=== PATIENT | female | born 1990 | race Caucasian/White ===

== ENCOUNTER 2024-01-19 21:52 | Emergency (ER) | payer OTHER, SELFPAY ==
[2024-01-19 21:54] VITALS: BP 190/126
[2024-01-19 23:06] VITALS: BMI 33.4
--- NOTE | 2024-01-19 23:39 | ED.GENMED ---
History of Present Illness
<JOSS Avila - Last Filed: 01/20/24 00:15>
General
Chief Complaint: Eye Problems
Source: patient and family
Time Seen by Provider: 01/19/24 23:21
Travel History
Have you had any contact with someone who has COVID-19?: No
Do you have any symptoms of coronavirus? Fever > 100 degrees, chills, cough, shortness of breath, sore throat, loss of taste or smell, muscle aches, or headache?: No
History of Present Illness
History of Present Illness:
33 year old female with hx of tricuspid valve regurgitation and migraines who presents for R eye pain and photophobia that began earlier this morning. Pt states she was using a stoneworking belt sander to sand wood at her house this morning. She was not wearing
eye protection. She went outside and the sunlight burned her R eye and had brief blindness to that eye. Since then she has had R eye pain and increased sensitivity to the light to the R eye. She went inside and turned off the lights and saw green
and had tunnel vision to the L eye for about 20 seconds. Reports a foreign body sensation to the R eye. She does not know if something got in her eye. Denies any trauma to the eye. She immediately rinsed the eye using a hose with temporarily relief
of the pain. She also used rewetting eye drop solution. States she has been using different material to make an eye patch to protect her eye from the light. Pt reports she developed a head ache on the right side. Also reports runny nose that
developed in the evening today. Denies contact or corrective lens use. Denies fevers/chills, cough, recent URI, chest pain, SOB.
Review of Systems
<JOSS Avila - Last Filed: 01/20/24 00:15>
Review of Systems
Allergies reviewed?: Yes
All Other Systems: ROS reviewed and negative except as documented in HPI and ROS
Constitutional: Reports no symptoms
EENT: Reports tearing and other (R eye pain, foreign body sensation, redness. )
Respiratory: Reports no symptoms
Cardiac: Reports no symptoms
ABD/GI: Reports no symptoms
: Reports no symptoms
Musculoskeletal: Reports no symptoms
Skin: Reports no symptoms
Neurological: Reports headache
Hematologic/Lymphatic: Reports no symptoms
Psychiatric: Reports no symptoms
Phy Exam
<JOSS Avila - Last Filed: 01/20/24 00:15>
General Physical Exam
General Presentation: well appearing and no apparent distress
General age: appears stated age and appears older than age
General Skin: warm and dry
General Habitus: normal
General Mental: alert
General Hydration: appears well hydrated
ENT Exam
ENT Exam: EOMI
Eye Exam
Eye Exam: PERRL, EOMI and cornea clear
Pupil Exam: Bilateral: round and reactive
Conjunctival Changes: right: chemosis
Cornea Exam: ulceration: Right (fluorescein uptake inferiorly)
Eyelid Exam: red and inflamed: Right
Cardiovascular Exam
Cardiovascular Exam: regular rate/rhythm, no edema, no gallop and no murmur
Pulmonary Exam
Pulmonary Exam: lungs clear, no respiratory distress, no rales, no crackles, no rhonchi, no wheezing and no cough
Neurological Exam
Neurological Exam: alert and oriented x3
Psychiatric Exam
Psychiatric Exam: normal mood/affect
Course
<JOSS Avila - Last Filed: 01/20/24 00:15>
Orders/Labs/Results
Orders:
Orders
01/20/24 00:12
Ibuprofen [Motrin] 800 mg PO NOW STA
01/20/24 00:17
RPR [Syphilis/T. pallidum Ab Reflex] Urgent
01/20/24 00:20
Atropine Sulfate [Atropine Sulfate 1% Drops] See Dose Instructions OPHTH ONCE ONE
Gentamicin [Genoptic 0.3% Eye Drops] See Dose Instructions OPHTH NOW STA
Vital Signs
Initial and Last Documented VS:
Initial Vital Signs
Temp Pulse Resp BP Pulse Ox
98.9 F 116 24 190/126 100
01/19/24 21:54 01/19/24 21:54 01/19/24 21:54 01/19/24 21:54 01/19/24 21:54
Last Documented Vital Signs
Temp Pulse Resp BP Pulse Ox
98.9 F 116 24 190/126 100
01/19/24 21:54 01/19/24 21:54 01/19/24 21:54 01/19/24 21:54 01/19/24 21:54
<Aleena Clayton DO - Last Filed: 01/20/24 00:33>
Orders/Labs/Results
Orders:
Orders
01/20/24 00:12
Ibuprofen [Motrin] 800 mg PO NOW STA
01/20/24 00:17
RPR [Syphilis/T. pallidum Ab Reflex] Urgent
01/20/24 00:20
Atropine Sulfate [Atropine Sulfate 1% Drops] See Dose Instructions OPHTH ONCE ONE
Gentamicin [Genoptic 0.3% Eye Drops] See Dose Instructions OPHTH NOW STA
Vital Signs
Initial and Last Documented VS:
Initial Vital Signs
Temp Pulse Resp BP Pulse Ox
98.9 F 116 24 190/126 100
01/19/24 21:54 01/19/24 21:54 01/19/24 21:54 01/19/24 21:54 01/19/24 21:54
Last Documented Vital Signs
Temp Pulse Resp BP Pulse Ox
98.9 F 116 24 190/126 100
01/19/24 21:54 01/19/24 21:54 01/19/24 21:54 01/19/24 21:54 01/19/24 21:54
<JOSS Avila - Last Filed: 01/20/24 00:15>
MDM/Problems Addressed
Differential Diagnosis Includes:
iritis, uveitis, foreign body in eye, acute angle closure glaucoma
MDM/Problems Addressed:
33 year old female with sudden onset of R eye pain and photosensitivity that began this morning.
<JOSS Avila - Last Filed: 01/20/24 00:15>
*Critical Care Note
Total Time (30-74mins, 75-104mins- exclusive of procedures): Not Applicable
ED Attending Note
<JOSS Avila - Last Filed: 01/20/24 00:15>
-
Portions of this chart may have been created with voice recognition software.� Occasional wrong word or��sound alike� substitutions may have occurred due to the inherent limitations of voice recognition software.
<Aleena Clayton DO - Last Filed: 01/20/24 00:33>
ED Attending Note
Patient seen and examined by attending physician: Yes
I performed the substantive portion of visit, reviewed & personally made and approve the management plan that is documented in note by myself or YAYA.: Yes
I performed a history and physical exam of patient and discussed management with resident, I reviewed resident's note and agree with documented findings and plan of care.: Yes
ED Attending Note:
This is a 33-year-old woman who has history of anxiety, currently following with specialist, transitioning from Seroquel to trazodone. Other than this she takes no other medications.
She states while working outdoors, standing a wooden table she felt a piece of dust or something fly into her right eye. She has had persistent foreign body sensation, pain and tearing to her right eye despite exhaustive efforts throughout the day
trying to flush her eye. She admits to significant light sensitivity causing moderate right eye pain and right forehead pain. She denies blurred nor loss of vision. No history of similar episodes in the past.
She does not wear contacts nor corrective lenses.
She denies risk of has IUD in place.
GENERAL: 33-year-old woman appears her stated age, awake and alert, appears moderately uncomfortable, preferentially holding her right eye closed, intermittently rubbing and dabbing at her right eye.
EYE: Right eye has mild conjunctival injection. Mild miosis of right eye with significant photosensitivity of right eye and moderate clear tearing. After tetracaine instilled patient reports complete relief of eye discomfort.
Fluorescein stain, Salmon lamp and slit lamp exam reveals mild/superficial abrasion inferior aspect of the cornea. There is no corneal foreign body. Anterior chamber appears clear.
NECK: Supple, nontender, no meningismus, no significant adenopathy.
ENT: oral mucosa is moist.
CARDIAC: Regular rate and rhythm. no murmur.
LUNGS: Clear breath sounds bilaterally, no acute respiratory distress, no wheezes/rales/rhonchi
NEUROLOGICAL: Alert and oriented x3, no focal neuro deficits. Gait is zambrano and steady.
SKIN: Warm and dry, normal color, skin intact. No rash.
MUSCULOSKELETAL: No C/C/E. peripheral pulses are full and equal b/l. No palpable tenderness.
PSYCH: Normal and appropriate interaction.
History and exam consistent with superficial corneal abrasion. She is noted to have significant photosensitivity, concern for an element of iritis.
It is reassuring that eye pain has resolved with tetracaine but she does continue with mild photosensitivity.
Will initiate gentamicin ophthalmic drops for corneal abrasion and will initiate atropine for cycloplegia for pain control.
Due to concern for iritis will check RPR for completeness sake. Patient states she has undergone recent routine laboratory studies which were all unremarkable including STD testing but RPR was not included.
Will plan for prompt follow-up with ophthalmology for further evaluation.
Return precautions discussed.
Discharge Plan
Departure
Patient Disposition: Home (Routine Discharge)
Date of Disposition: 01/20/24
Time of Disposition: 00:30
Patient with high blood pressure during this ER visit?: Yes
Condition: Good
Discharge Problem:
Injury of conjunctiva and corneal abrasion of right eye w/o FB
Instructions: Corneal Abrasion (DC), How to Use Eye Drops, BLOOD PRESSURE
Prescriptions:
New
gentamicin 0.3 % drops
1 drp ophthalmic (eye) QID Qty: 5 0RF
tetracaine HCl (PF) 0.5 % drops
1 drp ophthalmic (eye) QIDPRN PRN (Reason: eye pain) 2 Days Qty: 2.5 0RF
atropine 1 % drops
1 drp ophthalmic (eye) TID Qty: 2 0RF
Referrals:
Chip Robb MD [Active] - Next open appointment
Candace Nguyen DO [Family Provider] -
Interventions
Interventions:
*Risk Screen - Suicide Last Done: 01/19/24 21:54
*General Assessment Last Done: 01/19/24 23:06
*Neglect/Abuse Screening Last Done: 01/19/24 21:54
ED- Fall Risk Assessment Last Done: 01/19/24 23:06
*ED COVID-19 Vaccine History Last Done: 01/19/24 23:06
Discharge Date and Time
Print Language: JAPANESE
[2024-01-20] MEDS: MOTRIN 800 MG PO (00:17)
[2024-01-20 00:23] VITALS: BP 135/91
[2024-01-20] MEDS: GENOPTIC 0.3% EYE DROPS 1 DROP OPHTH (00:39)
[2024-01-20] MEDS: ATROPINE SULFATE 1% DROPS 1 DROP OPHTH (00:39)
[2024-01-22 15:43] LABS: Syphilis/T. pallidum Ab Reflex Negative (Negative)
== END 2024-01-20 01:13 | disposition home or self-care (01) ==
LOC: EMR 21:52
PROVIDERS: EMERGENCY PHYSICIAN Emergency Medicine; FAMILY PHYSICIAN Family Medicine
DX: S05.01XA Injury of conjunctiva and corneal abrasion without foreign body, right eye, initial encounter (principal); X58.XXXA Exposure to other specified factors, initial encounter; I07.1 Rheumatic tricuspid insufficiency; F41.9 Anxiety disorder, unspecified
CPT/HCPCS: 99282; 86780

== ENCOUNTER 2024-03-05 23:48 | Emergency (ER) | payer OTHER, SELFPAY ==
[2024-03-06 00:02] VITALS: BP 134/93
[2024-03-06 00:36] VITALS: BMI 32.1
[2024-03-06 01:00] VITALS: BP 132/85
[2024-03-06] MEDS: BACITRACIN OINTMENT 1 APPLIC TOPICAL (01:49)
[2024-03-06] MEDS: KEFLEX 500 MG PO (01:49)
--- NOTE | 2024-03-06 01:49 | ED.GENMED ---
History of Present Illness
General
Chief Complaint: Skin Problem
Source: patient
Exam Limitations: none
Time Seen by Provider: 03/06/24 01:22
History of Present Illness
History of Present Illness:
This is a 33 year old female that comes in with c/o redness of her tattoo. States that she has a tattoo gun and she was tattooing her right thigh. State that this started last night with redness and she was concerned about an infection. Denies any
fever, chills, chest pain, SOB, abd pain, nausea, vomiting, diarrhea, headache, dizziness, urinary burning.
Past History
Past History
ED Past Medical History: Arrthythmia (Questionable atrial fib), HTN and Other (Migraines, tricuspid valve problem, PE, PNA, Septic, )
ED Past Surgical History: Orthopedic (Left jaw inplant)
Social History
Tobacco: Smoker
Alcohol: Occasional
Personal: Single
Living: with family
Review of Systems
Review of Systems
All Other Systems: ROS reviewed and negative except as documented in HPI and ROS
Constitutional: Reports no symptoms; Denies fever or chills
EENT: Reports no symptoms
Respiratory: Reports no symptoms; Denies cough or trouble breathing
Cardiac: Reports no symptoms; Denies chest pain
ABD/GI: Reports no symptoms; Denies abdominal pain, nausea, vomiting or diarrhea
: Reports no symptoms; Denies dysuria, frequency or urgency
Musculoskeletal: Reports no symptoms
Skin: Reports other (redness at tattoo site on right thigh)
Neurological: Reports no symptoms; Denies dizzy or headache
Psychiatric: Reports no symptoms
Phy Exam
General Physical Exam
General Presentation: well appearing and no apparent distress
General age: appears stated age
General Skin: warm and dry
General Habitus: normal
General Mental: alert
General Hydration: appears well hydrated
ENT Exam
ENT Exam: TM's normal, pharynx normal and neck supple
Eye Exam
Eye Exam: EOMI
Cardiovascular Exam
Cardiovascular Exam: regular rate/rhythm, no edema and normal peripheral pulses
Pulmonary Exam
Pulmonary Exam: lungs clear, no respiratory distress, no rales, chest non tender, no crackles, no rhonchi, no wheezing and no cough
Musculoskeletal Exam
Musculoskeletal Exam: full ROM and no edema
Skin Exam
Skin Exam: normal color, warm/dry, no petechia and other (Slight redness at tattoo site. Negative for any drainage.)
Psychiatric Exam
Psychiatric Exam: normal mood/affect
Course
Orders/Labs/Results
Orders:
Orders
03/06/24 01:43
Bacitracin Zinc [Bacitracin Ointment] 1 applic TOPICAL NOW STA
03/06/24 01:44
Cephalexin Monohydrate [Keflex] 500 mg PO NOW STA
Vital Signs
Initial and Last Documented VS:
Initial Vital Signs
Temp Pulse Resp BP Pulse Ox
98.1 F 101 20 134/93 99
03/06/24 00:02 03/06/24 00:02 03/06/24 00:02 03/06/24 00:02 03/06/24 00:02
Last Documented Vital Signs
Temp Pulse Resp BP Pulse Ox
98.1 F 99 18 132/85 99
03/06/24 00:02 03/06/24 01:00 03/06/24 01:00 03/06/24 01:00 03/06/24 01:00
MDM/Problems Addressed
Differential Diagnosis Includes:
Skin infection. Skin irritation from Tattoo
MDM/Problems Addressed:
This is a 33 year old female that comes in with c/o redness on the right thigh as she has been tattooing herself.
Will have patient apply bacitracin and will place on Keflex for 7 days. Patient to return with any concerns.
Chronic conditions affecting care:
NA
Acute Exacerbation and/or Progression of Chronic Illness:
NA
*Pulse Oximetry
Patient hypoxic: no
*EKG
Interpreted by ED Provider?: NA
Rate: EKG- N/A
*Senior Sharepoint Architect Interpretation
Rate: Senior Sharepoint Architect- N/A
*Critical Care Note
Total Time (30-74mins, 75-104mins- exclusive of procedures): Not Applicable
ED Attending Note
-
Portions of this chart may have been created with voice recognition software.� Occasional wrong word or��sound alike� substitutions may have occurred due to the inherent limitations of voice recognition software.
Discharge Plan
Departure
Patient Disposition: Home (Routine Discharge)
Date of Disposition: 03/06/24
Time of Disposition: 02:06
Patient with high blood pressure during this ER visit?: Yes
Condition: Good
Covid-19: Not Applicable
Discharge Problem:
Skin infection
Instructions: Wound Care (DC), BLOOD PRESSURE
Prescriptions:
New
cephalexin 500 mg capsule
500 mg PO BID 7 Days Qty: 13 0RF
Referrals:
PRIVATE,PHYSICIAN [Family Provider] -
Activity Restrictions/Additional Instructions:
As discussed, this may be just a skin irritation to the tattooing. Please use the bacitracin to help prevent infection. You have also been given a prescription for Keflex to help prevent any further infection. This has been sent to your Pharmacy.
Was with warm soapy water. Follow up with the family doctor. IF YOU HAVE ANY OTHER CONCERNS PLEASE RETURN TO THE EMERGENCY ROOM.
Interventions
Interventions:
*Risk Screen - Suicide Last Done: 03/06/24 00:02
*General Assessment Last Done: 03/06/24 00:02
*Neglect/Abuse Screening Last Done: 03/06/24 00:02
ED- Fall Risk Assessment Last Done: 03/06/24 00:02
*ED COVID-19 Vaccine History Last Done: 03/06/24 00:02
ED-Skin Assessment Last Done: 03/06/24 00:40
Discharge Date and Time
Print Language: SWEDISH
[2024-03-06 02:00] VITALS: BP 122/68
== END 2024-03-06 02:14 | disposition home or self-care (01) ==
LOC: EMR 23:48
PROVIDERS: EMERGENCY PHYSICIAN Emergency Medicine
DX: L08.9 Local infection of the skin and subcutaneous tissue, unspecified (principal); I10 Essential (primary) hypertension; F17.200 Nicotine dependence, unspecified, uncomplicated; G43.909 Migraine, unspecified, not intractable, without status migrainosus; Z86.711 Personal history of pulmonary embolism; Z87.01 Personal history of pneumonia (recurrent); Z88.8 Allergy status to other drugs, medicaments and biological substances
CPT/HCPCS: 99283